=== PATIENT | male | born 1930 | race Caucasian/White ===

== ENCOUNTER → 2019-08-11 | Outpatient (CLI) | payer MEDICARE ==
--- NOTE | 2019-08-11 11:28 | REPPI ---
Prostate sonography: History: Elevated PSA Sonographic findings: Trans rectal prostate sonography demonstrates unremarkable seminal vesicles. Prostate gland is heterogeneously enlarged with calcifications and cystic changes noted. Glandular dimensions are measured at 3.9 x 3.4 x 5.1 cm with a calculated glandular volume of 35.6 ml. Transrectal sonographic guidance is provided to Dr. Newsome who performed trans rectal ultrasound guided needle biopsy procedure . Electronically Signed by Herb Yao MD 08/11/2019 11:20 A
== END ==
LOC: M SMT PRO 08:11
PROVIDERS: ATTEND Urology
DX: C61 Malignant neoplasm of prostate (principal)
CPT/HCPCS: 55700; 76872; 76942; G0416